=== PATIENT | male | born 1960 | race African-American/Black ===

== ENCOUNTER 2020-02-07 12:24 | Outpatient (CLI) | payer MEDICAID ==
[~2020-02-07] VITALS: Ht 177.8 cm; Wt 90.7 kg
[2020-02-07] MEDS ORDERED: no medications (12:37)
[2020-02-07 12:38] VITALS: BP 127/73
--- NOTE | 2020-02-07 13:45 | Consultation ---
DATE OF CONSULTATION: 02/07/2020 CHIEF COMPLAINT: Rectal bleeding. HISTORY OF PRESENT ILLNESS: This is a 59-year-old male without any significant past medical history. He has been having on and off rectal bleeding without any rectal pain. Last colonoscopy was 4 years ago. PAST MEDICAL HISTORY: None. PAST SURGICAL HISTORY: None. MEDICATIONS: None. ALLERGIES: No known drug allergies. FAMILY HISTORY: No family history of GI malignancies. SOCIAL HISTORY: The patient denies any tobacco, alcohol, or drug use. REVIEW OF SYSTEMS: Positive for rectal bleeding. PHYSICAL EXAMINATION: VITAL SIGNS: Temperature 98.1, blood pressure 127/73, pulse 71, respirations 20. HEENT: Normocephalic and atraumatic. Sclerae are anicteric. NECK: Supple. No evidence of obvious lymphadenopathy. CARDIOVASCULAR: Regular rate and rhythm. Plus S1, S2. LUNGS: Clear to auscultation bilaterally. ABDOMEN: Positive bowel sounds. Soft and nontender. No rebound. No guarding. No peritoneal sign. EXTREMITIES: No cyanosis, no clubbing, no edema. ASSESSMENT AND PLAN: This is a [id number] with rectal bleeding, needs a colonoscopy. The patient was given instruction for colonoscopy. Risks and benefits of procedure was explained to him in detail. We will schedule him when the authorization is obtained. Neri Hemphill M.D. DR: Sonia JOB#: [id number] CC:
== END 2020-02-07 15:04 | disposition home or self-care (01) ==
LOC: PAN 12:24
DX: K62.5 Hemorrhage of anus and rectum (principal)
CPT/HCPCS: G0463

== ENCOUNTER 2020-04-06 12:46 | Outpatient (CLI) | payer MEDICAID ==
[~2020-04-06 12:46] MED LIST: no medications
--- NOTE | 2020-04-06 16:30 | General Progress Note ---
Subjective ROS Limited/Unobtainable: Yes Allergies: Coded Allergies: No Known Allergies (Unverified , 02/07/20) Objective General Appearance: alert EENT: normal ENT inspection Neck: normal alignment Cardiovascular: normal peripheral pulses Respiratory/Chest: lungs clear Abdomen: normal bowel sounds, non tender, soft Extremities: non-tender Assessment/Plan Assessment/Plan: hemorrhoids one colon polyp one diverticuli repeat colon in 5 years Neri Hemphill MD Apr 06, 2020 16:30
== END 2020-04-06 15:18 | disposition home or self-care (01) ==
LOC: PAN 12:46
DX: K64.9 Unspecified hemorrhoids (principal); K63.5 Polyp of colon; K57.90 Diverticulosis of intestine, part unspecified, without perforation or abscess without bleeding
CPT/HCPCS: 99212